=== PATIENT | female | born 1990 | race Caucasian/White ===

== ENCOUNTER 2020-08-07 06:02 | Emergency (ER) | payer BC, OTHER ==
[~2020-08-07] VITALS: Ht 160 cm; Wt 60.0 kg
[2020-08-07 06:49] LABS: BILIRUBIN,URINE NEGATIVE (NEGATIVE); CLARITY,URINE CLEAR; COLOR,URINE YELLOW; GLUCOSE, URINE (UA) NEGATIVE (NEGATIVE); KETONES,URINE NEGATIVE (NEGATIVE); LEUKOCYTE ESTERASE ,URINE NEGATIVE (NEGATIVE); NITRITE,URINE NEGATIVE (NEGATIVE); PROTEIN,URINE NEGATIVE (NEGATIVE)
[2020-08-07 06:57] LABS: BACTERIA,URINE NEGATIVE /HPF; RBC,URINE RARE /HPF; SQUAMOUS EPITHELIAL CELL,UR RARE /HPF
--- NOTE | 2020-08-07 07:08 | ED GU-Female ---
General Chief Complaint: Abdominal/GI Problems Stated Complaint: URINARY PAIN; ABD PAIN W/ PREG Nursing Triage Note: PATIENT STATES STARTED YESTERDAY, STARTED WITH LOW URINE OUTPUT TO NONE OVER NIGHT. CONTINUED TO DRINK, STATES PAIN SINCE LAST NIGHT. Nursing Sepsis Screen: No Definite Risk Source: patient Exam Limitations: no limitations History of Present Illness Date Seen by Provider: Aug 07, 2020 Time Seen by Provider: 06:45 Initial Comments Patient presents ER by private conveyance from home with chief complaint of low midline pelvic discomfort and difficulty urinating this morning. No painful urine just difficult to get stream start. No fever chills diarrhea cough shortness of air. She is a at 14 weeks and 4 days with an LMP of April 27 followed by SOCIAL SERVICE COORDINATOR in [place] where she is from. Allergies and Home Medications Patient Home Medication List Home Medication List Reviewed: Yes Review of Systems Review of Systems Constitutional: No chills, No diaphoresis EENTM: No ear discharge, No ear pain Respiratory: No cough, No short of breath Cardiovascular: No chest pain, No edema Gastrointestinal: No abdominal pain, No constipation, No nausea Genitourinary: see HPI; denies burning, denies dysuria Expected Date of Delivery: Feb 01, 2021 Musculoskeletal: No back pain, No joint pain All Other Systemes Reviewed Negative Unless Noted: Yes Past Vlvbazy-Agxpdh-Idcoql Hx Patient Social History Alcohol Use: Denies Use Recreational Drug Use: No Smoking Status: Never a Smoker 2nd Hand Smoke Exposure: No Recent Foreign Travel: No Contact w/Someone Who Travel: No Recent Infectious Disease Expo: No Recent Hopitalizations: No Physical Abuse: No Sexual Abuse: No Mistreated: No Seasonal Allergies Seasonal Allergies: No Past Medical History Surgeries: No : Yes Expected Date of Delivery: Feb 01, 2021 Last Menstrual Period: April 27, 2020 Hx : 4 Hx Para: 2 Hx Total # of Abortions (Sp): 1 Physical Exam Vital Signs Vital Signs - First Documented 08/07/20 06:51 Temp 36.9 Pulse 86 Resp 18 B/P (MAP) 118/79 (92) Pulse Ox 100 O2 Delivery Room Air Capillary Refill : Less Than 3 Seconds Height, Weight, BMI Height: '" Weight: lbs. oz. kg; 23.00 BMI Method: General Appearance: WD/WN, no apparent distress HEENT: PERRL/EOMI, pharynx normal Neck: full range of motion, normal inspection Cardiovascular: normal peripheral pulses, regular rate, rhythm Respiratory: lungs clear, normal breath sounds, no respiratory distress, no accessory muscle use Gastrointestinal: normal bowel sounds, non tender, soft, no organomegaly Neurologic/Psychiatric: alert, oriented x 3 Skin: normal color, warm/dry Progress/Results/Core Measures Suspected Sepsis Recent Fever Within 48 Hours: No Infection Criteria Present: None New/Unexplained Altered Menta: No Sepsis Screen: No Definite Risk SIRS Temperature: Pulse: 86 Respiratory Rate: 18 Blood Pressure 118 /79 Mean: 92 Results/Orders Lab Results Laboratory Tests Test 08/07/20 06:45 Range/Units Urine Color YELLOW Urine Clarity CLEAR Urine pH 7.0 5-9 Urine Specific [place] 1.020 1.016-1.022 Urine Protein NEGATIVE NEGATIVE Urine Glucose (UA) NEGATIVE NEGATIVE Urine Ketones NEGATIVE NEGATIVE Urine Nitrite NEGATIVE NEGATIVE Urine Bilirubin NEGATIVE NEGATIVE Urine Urobilinogen 0.2 < = 1.0 MG/DL Urine Leukocyte Esterase NEGATIVE NEGATIVE Urine RBC (Auto) NEGATIVE NEGATIVE Urine RBC RARE /HPF Urine WBC NONE /HPF Urine Squamous Epithelial Cells RARE /HPF Urine Crystals NONE /LPF Urine Bacteria NEGATIVE /HPF Urine Casts NONE /LPF Urine Mucus NEGATIVE /LPF Urine Culture Indicated NO My Orders Orders - ANH TRAN Ua Culture If Indicated (08/07/20 06:30) Straight Cath For Spec.-Adult (08/07/20 06:30) Vital Signs/I&O 08/07/20 06:51 Temp 36.9 Pulse 86 Resp 18 B/P (MAP) 118/79 (92) Pulse Ox 100 O2 Delivery Room Air Capillary Refill : Less Than 3 Seconds Blood Pressure Mean: 92 Progress Note : Time: 07:06 Progress Note heart tones 150. After nursing placed a straight catheter she drained 1100 cc of urine. Urinalysis unremarkable. Have her follow-up with her SOCIAL SERVICE COORDINATOR for urinary outlet obstruction. Departure Impression Primary Impression: Urinary outflow obstruction Disposition: 01 HOME, SELF-CARE Condition: Stable Departure-Patient Inst. Decision time for Depature: 07:05 Referrals: NO,LOCAL PHYSICIAN (PCP/Family) Primary Care Physician Patient Instructions: Urinary Obstruction (DC) Add. Discharge Instructions: Drink plenty of fluids. 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 Return to the doctor sooner if you develop fever, painful urination or other worrisome symptoms. All discharge instructions reviewed with patient and/or family. Voiced understanding. ANH TRAN Aug 07, 2020 07:08
--- NOTE | 2020-08-07 07:20 | NUR ---
PATIENT WAS ABLE TO URINATE ON HER ON BEFORE DISCHARGE.
[2020-08-07 07:26] VITALS: BP 118/79
== END 2020-08-07 07:26 | disposition home or self-care (01) ==
LOC: ER 06:05
DX: O99.89 Other specified diseases and conditions complicating pregnancy, childbirth and the puerperium (principal); N13.9 Obstructive and reflux uropathy, unspecified; Z3A.14 14 weeks gestation of pregnancy
CPT/HCPCS: 51701; 81000; 87088